=== PATIENT | female | born 2000 | race Hispanic/Latino ===

== ENCOUNTER 2018-06-30 16:33 | Emergency (ER) | payer OTHER | END 2018-06-30 17:50 | disposition home or self-care (01) | LOC: EDH 16:33 | DX: J06.9 Acute upper respiratory infection, unspecified (principal) | CPT/HCPCS: 99281 ==

== ENCOUNTER 2020-05-14 15:04 | Emergency (ER) | payer SELFPAY ==
[2020-05-14] MEDS ORDERED: KETOROLAC TROMETHAMINE 60 MG/2 ML VIAL ONE (15:28)
[2020-05-14] MEDS ORDERED: LIDOCAINE HCL-MPF 1% 2ML VIAL ONE ×2 (15:28→15:35)
[2020-05-14] MEDS ORDERED: CEFTRIAXONE SODIUM 1 GM ONE (15:28)
== END 2020-05-14 15:58 | disposition home or self-care (01) ==
LOC: EDH 15:04
DX: N61.0 Mastitis without abscess (principal)
CPT/HCPCS: 81025; 96372 ×2; 99284; J0696; J1885; J3490 ×2

== ENCOUNTER 2020-06-08 16:43 | Emergency (ER) | payer SELFPAY | END 2020-06-09 18:32 | disposition home or self-care (01) | LOC: EDH 16:43 | DX: N61.0 Mastitis without abscess (principal) ==

== ENCOUNTER → 2022-12-09 | Outpatient (CLI) | payer BC ==
[~2022-12-09] MED LIST: LIDOCAINE HCL 1% 20 ML VIAL ONE
[2022-12-09 08:26] LABS: INR 0.94 (0.85-1.15); PROTHROMBIN TIME 10.3 SEC (9.6-11.6)
[2022-12-09 08:27] LABS: PARTIAL THROMBOPLASTIN TIME 29.2 SEC (26.3-35.5)
== END | disposition home or self-care (01) ==
LOC: RAH 07:26
PROVIDERS: ATTEND Internal Medicine
DX: N61.1 Abscess of the breast and nipple (principal); Z79.01 Long term (current) use of anticoagulants
CPT/HCPCS: 19000; 10160; 85610; 85730; 87071; 87205; 36415; 76942; C1729 ×2